=== PATIENT | male | born 1990 | race Two or more races ===

== ENCOUNTER 2019-11-21 09:09 | Outpatient (CLI) | payer OTHER | END 2019-11-21 09:17 | disposition home or self-care (01) | LOC: RAD 09:09 | PROVIDERS: ATTEND Urology | DX: I86.8 Varicose veins of other specified sites (principal) ==

== ENCOUNTER 2019-11-23 05:08 | Day surgery (SDC) | payer OTHER | END 2019-11-23 12:40 | disposition home or self-care (01) | LOC: CIR.AMB 05:08 | PROVIDERS: ATTEND Urology | DX: I86.1 Scrotal varices (principal); Z20.828 Contact with and (suspected) exposure to other viral communicable diseases ==